=== PATIENT | female | born 1990 | race Caucasian/White ===

== ENCOUNTER 2016-11-18 05:49 | Day surgery (SDC) | payer OTHER ==
[~2016-11-18] VITALS: Ht 157.5 cm; Wt 49.7 kg
[2016-11-18] VITALS (10 sets, daily range): BP systolic 98–131; BP diastolic 49–81; PULSE 67–85; RESP 14–20; O2SAT 97–100
[2016-11-18] MEDS: Lactated Ringer's 1,000 ML IV SCH ×2 (05:36→07:35)
[~2016-11-18 05:49] MED LIST: HYDR-4003 PO; ZOLP5TAB6 PO; mirena INTRAUTERI
[2016-11-18] MEDS ORDERED: Propofol 10,000 mCg/mL 20 mL Inj ONE (05:50)
[2016-11-18] MEDS ORDERED: Neostigmine 1 mg/mL 10 mL Inj ONE (05:50)
[2016-11-18] MEDS ORDERED: Ondansetron 2 mg/mL 2 mL Inj ONE (05:50)
[2016-11-18] MEDS ORDERED: Glycopyrrolate 0.2 MG/ML 1mL Inj ONE (05:50)
[2016-11-18] MEDS ORDERED: Lidocaine PF 1% 30 mL Inj ONE (05:50)
[2016-11-18] MEDS ORDERED: fentaNYL-PF 50 mCg/mL 2 mL Inj ONE (05:50)
[2016-11-18] MEDS ORDERED: MetoCLOpramide 5 mg/mL 2 mL Inj ONE (05:50)
[2016-11-18] MEDS ORDERED: Dexamethasone 4 mg/mL Inj ONE (05:50)
[2016-11-18] MEDS ORDERED: CeFAZolin Inj 2 gm / 50mL D5W IV ONE (05:56)
[2016-11-18] MEDS ORDERED: CeFAZolin Inj 2 GM in IV Premix 1 EACH IV ONE (07:00)
--- NOTE | 2016-11-18 07:15 | PCM.HPANE ---
Patient Data Date of Service: Nov 18, 2016 Surgeon Admitting Provider: Attending Provider:Rip Montana MD Primary Care Physician:Candy Blanc Other Provider:Robert Erwin Anesthesia Reason for Visit Chronic Pelvic Pain Ht/WT & BMI Height (Feet): 5 Height (Inches): 2.00 Weight (Kilograms): 49.7 Body Mass Index 20.00 Allergies Coded Allergies: No Known Allergies (Verified Allergy, Unknown, 08/21/14) Past Anesthesia History Anesthesia History: Denies:: Anesthesia Reactions, Fam Anesthesia Reaction, Malignant Hyperthermia Diabetes History Hx Diabetes?: No MRSA MRSA: No Medications Hypertension Medication: No Home Meds Incl Beta Markus: No Reported Medications [mirena] 20mcg/24hrs No Conflict Check20 Mcg INTRAUTERI 11/17/16 Zolpidem 5 Mg Tablet5 Mg PO HS PRN For Insomnia Ref 0 11/17/16 Discontinued Reported Medications Hydrocodone-Acetaminophen 5-325 mg 1 Each Tablet1 Tablet PO Q6H PRN For Pain Ref 0 11/17/16 Venlafaxine 37.5 Mg Vxotuh13.5 Mg PO BIDWM #60 TABLET Ref 0 08/21/14 Sumatriptan Succinate (Imitrex)50 Mg Avwhcc67 Mg PO PRN PRN For Headache 08/21/14 History History of ENT Problems?: No HEENT History: Denies:: Abnormal Airway Hearing Problem Denture Type: None Teeth Condition: Within Normal Limits Hx of Heart Problems?: No Cardiovascular History: Denies:: Chest Pain Hypertension Irregular Heartbeat Hx of Respiratory Problem?: No Respiratory History: Denies:: Asthma COPD Oxygen Administration Pneumonia Use of C-PAP Machine Use of Inhalers / NEBS Hx Neurologic Problems?: Yes Neurological History: Positive for:: Headaches Denies:: Peripheral Neuropathy Seizures Hx of GI Problems?: No Gastrointestinal History: Denies:: Gastroesphageal Reflux Hx of Problems?: No Genitourinary History: Positive for:: Urinary Tract Infection (HX OF) Female Hx: Positive for:: Endometriosis Denies:: Currently Problems with Breasts? Skin History: Denies:: History Skin Disorders? Pressure Ulcers Hx Musculoskeletal Problems?: No Hx of Psycho/Social Problems?: Yes Psycho Social History: Positive for:: Anxiety Hx Surgeries?: Yes ( laparoscopy) Hx Any Other Health Problems?: Yes Other History: Positive for:: Hospitalization ([facility]) Denies:: Cancer Endocrine Disease Thyroid Disease History Blood Transfusions: Denies:: Blood Transfusions Hx Diabetes: No Hx Alcohol Use: Yes (RARELY)Hx Substance Use: No Smoking Status: Current Every Day Smoker Have You Smoked inLast 12 mo: Yes Stop/Bang S-Snoring: Do You Snore Loudly: No T-Tired: feel tired, fatigued: Yes O-Obsered: Observed not breath: No P-Blood Pressure: treated: No B- Body Mass Index > 35 kg/m2: No A- Age over 50: No N- Neck Large Circumference: No G- Gender Male: No RANDY Total Score: 1 RANDY Risk Assessment: Low Risk, <3 Yes Risk Assessment Category Category 1A: Patient has history of documented sleep apnea, and HAS NOT received any narcotic, sedative or anesthesia administration during this stay. Category 1B: Patient has history of documented sleep apnea, and HAS received any narcotic , sedative or anesthesia administration during this stay Category 2: Patient has SUSPECTED Obstructive Sleep Apnea, and HAS received any narcotic , sedative or anesthesia administration during this stay. Category 3: Patient has SUSPECTED Obstructive Sleep Apnea and HAS NOT received narcotic, sedative or anesthesia administration during this stay. Category 4: Outpatient in Procedural Areas with known sleep apnea or who screen positive for High Risk via the STOP/BANG questionnaire. Exam Exam Vital Signs Vital Signs Date Time Temp Pulse Resp B/P Pulse Ox O2 Delivery O2 Flow Rate FiO2 11/18/16 06:42 36.2 85 16 131/69 98 Room Air General Appearance: Alert, Oriented X3, Cooperative, No Acute Distress HEENT/AIRWAY: MP 2, Neck Movement (from), Mouth Opening (3 fb), Other (big incisors, poor mandibular protrusion, overbite) Lungs: Clear to Auscultation, Normal Air Movement Heart: Exam Unremarkable, Regular Rate/Rhythm, No Murmurs/Rubs/Gallops Meds/Labs/Diagnostics Admission Meds Current Medications Lactated Ringer's (Lr) 1,000 ml @ 120 mls/hr Q8H20M IV Last administered on 05:36; Start 11/18/16 at 05:00; Stop 11/18/16 at 13:19 Gabapentin (Neurontin) 600 mg PREOP ONCE PO Last administered on 11/18/16 06: 30; Start 11/18/16 at 06:00; Stop 11/18/16 at 06:01; Status DC Celecoxib (CeleBREX) 200 mg PREOP ONCE PO Last administered on 11/18/16 06:30 ; Start 11/18/16 at 06:00; Stop 11/18/16 at 06:01; Status DC Scopolamine (Transderm-Scop Patch) 1.5 mg ONCE ONCE TOPICAL Last administered on 11/18/16 06:30; Start 11/18/16 at 05:00; Stop 11/18/16 at 05:01; Status DC Acetaminophen (Tylenol) 1,000 mg PREOP ONCE PO Last administered on 11/18/16 06:30; Start 11/18/16 at 06:00; Stop 11/18/16 at 06:01; Status DC Plan Impression Patient chart reviewed, patient interviewed and anesthestic plan with risks, benefits, and alternatives discussed, and informed consent obtained. NPO per Anesth. Guidelines: Yes ASA Physical Status: ASA2 Mod Systemic Disease Anesthetic Plan: GA Bene/Risks/Altern/Consents: Yes HP Complete Prior to Induction: Yes Carter Troy MD Nov 18, 2016 07:15
[2016-11-18] MEDS ORDERED: Lactated Ringer's 500 ML IV PRN (08:07)
[2016-11-18] MEDS ORDERED: Lactated Ringer's 1,000 ML IV SCH (08:07)
[2016-11-18] MEDS ORDERED: HYDROmorphone 1 mg/mL Inj IVPUSH PRN ×2 (08:10→09:00)
[2016-11-18] MEDS ORDERED: Phenylephrine 10,000 mCg/mL Inj IVPUSH PRN (08:10)
[2016-11-18] MEDS ORDERED: EPHEDrine Sulfate 50 mg/mL Inj IVPUSH PRN (08:10)
[2016-11-18] MEDS ORDERED: hydrOXYzine Inj 50 MG/1 mL SDV IM PRN (08:10)
[2016-11-18] MEDS ORDERED: Ondansetron 2 mg/mL 2 mL Inj IVPUSH PRN ×2 (08:10→09:00)
[2016-11-18] MEDS ORDERED: fentaNYL-PF 50 mCg/mL 2 mL Inj IVPUSH PRN (08:10)
[2016-11-18] MEDS ORDERED: Atropine 0.4 mg/mL Inj IVPUSH PRN (08:10)
[2016-11-18] MEDS ORDERED: EPHEDrine Sulfate 50 mg/mL Inj IM PRN (08:10)
[2016-11-18] MEDS ORDERED: Bupivacaine-MPF 0.5% W/EPI 30 mL Inj INFILTRATE ONE (08:15)
[2016-11-18] MEDS ORDERED: oxyCODONE-Acetamin 5-325 mg Tablet PO PRN (09:00)
--- NOTE | 2016-11-18 09:07 | PCM.DIMED ---
Discharge Instructions Date of Service Nov 18, 2016 Dates of Hospitalization Diet Discharge Diet: No restrictions Activity Discharge Activity: No restrictions Call your provider Call your provider for: Fever or Chills, Shortness of breath, Bleeding, Chest pain, Vomitting, Excessive diarrhea, Weakness (unilateral) Patient Instructions Follow-up with PCP in: 2 weeks Rip Montana MD Nov 18, 2016 09:07
--- NOTE | 2016-11-18 09:39 | OP ---
[address] [address] OPERATIVE REPORT PATIENT: ESTUARDO JOHNSON : 1990 MR#: [id number] ADMIT: 11/18/2016 JOB ID: [id number] DATE OF SURGERY: 11/18/2016 PROCEDURE: Diagnostic laparoscopy. PREOPERATIVE DIAGNOSIS(ES): Chronic pain rule out endometriosis. POSTOPERATIVE DIAGNOSIS(ES): Chronic pelvic pain. SURGEON: Rip Montana MD JALOUSIE INSTALLER: Alissa Reyes MD. The assistance of Dr. Reyes was necessary for tissue manipulation, proper exposure, and visualization of anatomical structures. ANESTHESIA: Dr. , general. ESTIMATED BLOOD LOSS: 1 mL. ESTIMATED URINE OUTPUT: 300 mL. FLUIDS: 500 mL of lactated ringer. COMPLICATIONS: None. FINDINGS: The patient does not have any endometriosis. The adnexa looked normal. The ovaries looked normal without any ovarian cysts. There is congestion of pelvic veins on both sides that may be suggestive of pelvic congestion syndrome. There are no adhesions. PROCEDURE: The patient was brought to the operating room, where she underwent general anesthesia without difficulty. The patient was placed in the deep dorsal lithotomy position using Seth stirrups. She was prepped and draped in usual surgical fashion. A tenaculum was placed at the cervix and Martinez catheter was placed at the beginning of the procedure, they were removed at the end of the surgery. The Veress needle was placed through the umbilicus and the CO2 gas was insufflated until appropriate pneumoperitoneum was achieved. A 5 mm vertical subumbilical skin incision was made with a scalpel and a 5 mm trocar was placed through the incision. With a 30-degree laparoscope the pelvis and abdomen were reviewed with the findings mentioned above. Two additional 5 mm skin incision was made in the right lower quadrant 5 cm medially and superiorly from the anterior-superior iliac spine. A 5 mm trocar was placed through the incision. Using blunt probe the uterus was elevated and the remaining part of the pelvis including both adnexa and cul-de-sac area were reviewed, images were obtained. The abdomen was desufflated from the CO2 gas, all the instruments were removed. The two trocar skin incisions were closed with 0-Monocryl, hemostatic dressing was applied. The tenaculum and Martinez catheter were removed. The patient was positioned back into the supine position. She tolerated the procedure well and was transferred to the recovery room in stable condition.
--- NOTE | 2016-11-18 10:19 | PCM.ANEP1 ---
Post Anesthesia PACU Phase 1 Assessment Date of Service: Nov 18, 2016 Vital Signs Vital Signs Date Time Temp Pulse Resp B/P Pulse Ox O2 Delivery O2 Flow Rate FiO2 11/18/16 09:30 83 17 116/74 98 Room Air 11/18/16 09:25 36.8 85 14 114/71 98 Room Air 11/18/16 09:15 79 14 131/81 100 Room Air 11/18/16 09:05 67 14 98/51 97 Room Air 11/18/16 09:00 67 15 100/50 98 Room Air 11/18/16 08:55 68 15 100/49 98 Room Air 11/18/16 08:50 70 14 105/55 99 Nasal Cannula 4 11/18/16 08:48 37.1 70 15 107/51 100 Nasal Cannula 4 11/18/16 06:42 36.2 85 16 131/69 98 Room Air Anesthetic Administered: GA Level of Alertness: Awake, talking DANGELO's with Equal Strength: Yes Pain: Yes Pain Scale Score: 3 Nausea or Vomiting: No CV Function & Hydration Stable: Yes Airway Device: none Oxygen Delivery: Room Air Lungs: Clear to Auscultation, Normal Air Movement Dermatome Level: Full Sensation PACU Phase 2 Assessment Complications: No Follow up Care: No Patient Instructions Provided: N/A Carter Troy MD Nov 18, 2016 10:19
== END 2016-11-18 23:59 | disposition home or self-care (01) ==
LOC: SAS 05:49
PROVIDERS: ATTEND Legal Medicine
DX: R10.2 Pelvic and perineal pain (principal); Z87.42 Personal history of other diseases of the female genital tract
CPT/HCPCS: 49320; J0690; J1170; J1885; J7120